=== PATIENT | male | born 1990 | race Caucasian/White ===

== ENCOUNTER 2017-10-24 19:36 | Emergency (ER) | payer MEDICAID ==
[~2017-10-24] VITALS: Ht 177.8 cm; Wt 93.9 kg
[~2017-10-24 19:36] MED LIST: INSLAN SQ
[2017-10-24 20:19] LABS: BASOPHILS % (AUTO) 0.7 % (0.0-2.0); EOSINOPHILS % (AUTO) 2.9 % (1.0-6.0); HEMATOCRIT 40.9 % (41-53); HEMOGLOBIN 14.4 g/dL (13.5-17.5); LYMPHOCYTES # (AUTO) 2.8 K/uL (1.0-4.8); LYMPHOCYTES % (AUTO) 34.1 % (22.0-44.0); MEAN CORPUSCULAR HEMOGLOBIN 28.2 pg (26.0-34.0); MEAN CORPUSCULAR HGB CONC 35.1 G/dL (31.0-37.0); MEAN CORPUSCULAR VOLUME 80 fL (80-100); MONOCYTES % (AUTO) 11.8 % (2.0-9.0); NEUTROPHILS # (AUTO) 4.1 K/uL (1.8-7.7); NEUTROPHILS % (AUTO) 50.5 % (40.0-70.0); PLATELET COUNT (AUTO) 396 K/uL (150-450); RED CELL DISTRIBUTION WIDTH 13.6 % (11.5-14.5)
[2017-10-24 20:30] LABS: ANION GAP 10 mmol/L (8-16); CALCIUM, TOTAL 9.3 mg/dL (8.8-10.5); CARBON DIOXIDE 29 mmol/L (22-29); CHLORIDE 101 mmol/L (98-107); CREATININE 1.19 mg/dL (0.60-1.30); GLOMERULAR FILTR. RATE CALC > 60 mL/min (>60); GLUCOSE,RANDOM 143 mg/dL (70-110); POTASSIUM 3.6 mmol/L (3.5-5.1); SODIUM SERUM 140 mmol/L (136-145); UREA NITROGEN, BLOOD 8 mg/dL (7-18)
[2017-10-24 20:35] LABS: ALANINE AMINOTRANSFERASE 144 U/L (12-78); ALBUMIN 3.6 g/dL (3.4-5.0); ALKALINE PHOSPHATASE 140 U/L (46-116); ASPARTATE AMINOTRANSFERASE 44 U/L (15-37); BILIRUBIN,TOTAL 0.5 mg/dL (0.1-1.0); LIPASE 1109 U/L (73-393); TOTAL PROTEIN, SERUM 7.5 g/dL (6.4-8.2)
[2017-10-24 20:59] LABS: APPEARANCE,URINE CLOUDY (CLEAR); GLUCOSE, URINE (UA) 100 mg/dL (NEGATIVE); KETONES,URINE 15 mg/dL (NEGATIVE); LEUKOCYTE ESTERASE ,URINE SMALL (NEGATIVE); NITRATE,URINE NEGATIVE (NEGATIVE); OCCULT BLOOD,URINE NEGATIVE (NEGATIVE); PH,URINE 6.5 (5.0-8.0); PROTEIN,URINE SEE CONFIRM (NEGATIVE)
[2017-10-24 21:12] LABS: BILIRUBIN,URINE PRELIM. POSITIVE (NEGATIVE)
[2017-10-24 21:46] LABS: SULFOSALICYLIC ACID,URINE 1+ (Negative)
[2017-10-24 21:48] LABS: BACTERIA,URINE Moderate /HPF (None Seen); RBC,URINE None Seen /HPF (0-2); SQUAMOUS EPITHELIAL CELL,UR Few /LPF (None Seen)
[2017-10-24 21:49] LABS: MUCUS,URINE Many LPF (None Seen)
[2017-10-24] MEDS: SODIUM CHLORIDE 0.9% 2,000 ML IV ONE (22:31)
[2017-10-24] MEDS: ONDANSETRON HCL 4 MG/2 ML VIAL IVP ONE (22:32)
[2017-10-24] MEDS: FentaNYL CITRATE-PF 100 MCG/2 ML VIAL IVP ONE (22:32)
[2017-10-25] MEDS: FLUCONAZOLE 150 MG TABLET PO ONE (00:38)
[2017-10-25] MEDS: ACETAMINOPHEN/CODEINE 300-30 MG TABLET PO ONE (00:38)
[2017-10-25 00:51] VITALS: BP 136/70
[2017-10-25] MEDS: FentaNYL CITRATE-PF 100 MCG/2 ML VIAL IVP ONE (00:52)
[2017-10-28 17:14] LABS: GLUCOSE,POINT OF CARE 138 MG/DL (70-110)
== END 2017-10-25 00:55 | disposition home or self-care (01) ==
LOC: EMS 21:17
DX: K85.90 Acute pancreatitis without necrosis or infection, unspecified (principal); B35.3 Tinea pedis; E86.0 Dehydration; K76.0 Fatty (change of) liver, not elsewhere classified; E11.9 Type 2 diabetes mellitus without complications; I10 Essential (primary) hypertension; Z90.49 Acquired absence of other specified parts of digestive tract; Z79.4 Long term (current) use of insulin; Z79.899 Other long term (current) drug therapy
CPT/HCPCS: 36415; 80053; 81001; 82948; 82962; 83690; 85025; 87086; 93005; 96361; 96374; 96375; 96376; 99285; J2405; J3010 ×2; J7030

== ENCOUNTER 2018-09-08 10:07 | Emergency (ER) | payer SELFPAY ==
[~2018-09-08] VITALS: Ht 177.8 cm; Wt 104.5 kg
[2018-09-08 10:19] LABS: GLUCOSE,POINT OF CARE 297 MG/DL (70-110)
[2018-09-08] MEDS ORDERED: PROPARACAINE HCL 0.5% 15 ML OPHTHALMIC SOLUTION OD ONE (12:15)
[2018-09-08] MEDS ORDERED: FLUORESCEIN SODIUM 1 MG STRIP OD ONE (12:15)
[2018-09-08 13:27] VITALS: BP 151/91
== END 2018-09-08 13:52 | disposition home or self-care (01) ==
LOC: EMS 10:08
DX: R51 Headache (principal); R22.0 Localized swelling, mass and lump, head; H57.11 Ocular pain, right eye; I10 Essential (primary) hypertension; E11.9 Type 2 diabetes mellitus without complications
CPT/HCPCS: 70450

== ENCOUNTER 2024-06-21 20:52 | Inpatient (IN) | payer MEDICAID, OTHER ==
[~2024-06-21] VITALS: Ht 177.8 cm; Wt 98.4 kg
[~2024-06-21 20:52] MED LIST changes: +AMOX250T PO; +TRAM50TA5 PO
[2024-06-21 21:46] LABS: BASOPHILS % (AUTO) 0.2 % (0.0-2.0); EOSINOPHILS % (AUTO) 0.4 % (1.0-6.0); HEMATOCRIT 52.5 % (41-53); HEMOGLOBIN 17.9 g/dL (13.5-17.5); LYMPHOCYTES # (AUTO) 1.9 K/uL (1.0-4.8); LYMPHOCYTES % (AUTO) 10.5 % (22.0-44.0); MEAN CORPUSCULAR HEMOGLOBIN 28.4 pg (26.0-34.0); MEAN CORPUSCULAR HGB CONC 34.1 G/dL (31.0-37.0); MEAN CORPUSCULAR VOLUME 83 fL (80-100); MONOCYTES # (AUTO) 1.2 K/uL (0.1-1.0); MONOCYTES % (AUTO) 6.5 % (2.0-9.0); NEUTROPHILS # (AUTO) 14.7 K/uL (1.8-7.7); NEUTROPHILS % (AUTO) 82.4 % (40.0-70.0); PLATELET COUNT (AUTO) 341 K/uL (150-450); RED BLOOD CELL COUNT(AUTO) 6.31 MIL/uL (4.50-5.90); RED CELL DISTRIBUTION WIDTH 13.1 % (11.5-14.5); WHITE BLOOD COUNT (AUTO) 17.8 K/uL (4.5-11.0)
[2024-06-21 21:57] LABS: ANION GAP 13 mmol/L (8-16); CALCIUM, TOTAL 9.9 mg/dL (8.8-10.5); CARBON DIOXIDE 22 mmol/L (22-29); CHLORIDE 99 mmol/L (98-107); CREATININE 0.79 mg/dL (0.60-1.30); GLOMERULAR FILTR. RATE CALC > 60 mL/min (>60); GLUCOSE,RANDOM 343 mg/dL (70-110); SODIUM SERUM 134 mmol/L (136-145); UREA NITROGEN, BLOOD 17 mg/dL (7-18)
[2024-06-21 21:58] LABS: LIPASE 69 U/L (16-77)
[2024-06-21 22:01] LABS: ALBUMIN 3.9 g/dL (3.4-5.0); BILIRUBIN,DIRECT 0.5 mg/dL (0.00-0.20); BILIRUBIN,TOTAL 1.3 mg/dL (0.1-1.0); TOTAL PROTEIN, SERUM 8.2 g/dL (6.4-8.2)
[2024-06-21 22:03] LABS: APPEARANCE,URINE HAZY (CLEAR); COLOR,URINE YELLOW (YELLOW); GLUCOSE, URINE (UA) >=1000 mg/dL (NEGATIVE); KETONES,URINE 40-60 mg/dL (NEGATIVE); LEUKOCYTE ESTERASE ,URINE TRACE (NEGATIVE); NITRATE,URINE NEGATIVE (NEGATIVE); OCCULT BLOOD,URINE NEGATIVE (NEGATIVE); PH,URINE 5.5 (5.0-8.0); PROTEIN,URINE 300-600,SEE CONFIRM mg/dL (NEGATIVE); SPECIFIC GRAVITIY, URINE 1.041 (1.003-1.030)
[2024-06-21 22:04] LABS: BILIRUBIN,URINE SMALL (NEGATIVE)
[2024-06-21 22:14] LABS: COVID AG,FIA SOURCE NASAL SWAB
[2024-06-21 22:35] LABS: SARS-COV2 (COVID) ANTIGEN,FIA Negative (Negative)
[2024-06-21 22:36] LABS: INFLUENZA TYPE A NEGATIVE FOR TYPE A (NEGATIVE); INFLUENZA TYPE B NEGATIVE FOR TYPE B (NEGATIVE)
[2024-06-21 22:41] LABS: RBC,URINE 0-2 /HPF (0-2)
[2024-06-21 22:42] LABS: BACTERIA,URINE Few /HPF (None Seen); SQUAMOUS EPITHELIAL CELL,UR Few /LPF (None Seen); SULFOSALICYLIC ACID,URINE 1+ (Negative)
[2024-06-21] MEDS: IOHEXOL 9 MG/ML 500 ML BOTTLE PO ONE (23:24)
[2024-06-21] MEDS: HYDROmorphone HCL 2 MG/ML SYRINGE IVP ONE (23:25)
[2024-06-21] MEDS: ONDANSETRON HCL 4 MG/2 ML VIAL IVP ONE (23:25)
[2024-06-21] MEDS: INSULIN REGULAR, HUMAN 100 UNITS/ML IVP ONE (23:29)
[2024-06-21] MEDS: SODIUM CHLORIDE 0.9% 2,000 ML IV ONE (23:35)
[2024-06-22] MEDS: SODIUM CHLORIDE 0.9% 1,000 ML IV ONE (03:32)
[2024-06-22] MEDS: HYDROmorphone HCL 2 MG/ML SYRINGE IVP ONE ×2 (03:33→08:56)
[2024-06-22 04:16] LABS: GLUCOMETER DEV NAME(LOC) ER.7; GLUCOSE,POINT OF CARE 230 MG/DL (70-110)
[2024-06-22 09:43] VITALS: BP 130/91; PULSE 89; RESP 18; TEMP 98.1; O2SAT 98
[2024-06-22 12:21] LABS: GLUCOMETER DEV NAME(LOC) 6N.2B; GLUCOSE,POINT OF CARE 193 MG/DL (70-110)
[2024-06-22 15:58] VITALS: BP 127/79; PULSE 75; RESP 18; TEMP 98.4; O2SAT 99
[2024-06-22] MEDS: DEXTROSE 5%-0.45% SODIUM CHL 1,000 ML IV SCH (16:01)
[2024-06-22] MEDS: MORPHINE SULFATE 2 MG/ML SYRINGE IVP PRN (16:21)
[2024-06-22 19:21] VITALS: BP 135/92; PULSE 82; RESP 18; TEMP 97.9; O2SAT 97
[2024-06-22] MEDS ORDERED: MAGNESIUM HYDROXIDE SUSPENSION 30 ML UDCUP PO PRN (21:15)
[2024-06-22] MEDS ORDERED: OxyCODONE HCL/ACETAMINOPHEN 5-325 MG TABLET PO PRN (21:15)
[2024-06-22] MEDS ORDERED: ZOLPIDEM TARTRATE 5 MG TABLET PO PRN (21:15)
[2024-06-22] MEDS ORDERED: ACETAMINOPHEN 325 MG TABLET PO PRN (21:15)
[2024-06-22] MEDS ORDERED: IPRATROPIUM BROMIDE 0.5 MG/2.5 ML NEB SOLUTION NEB PRN (21:15)
[2024-06-22] MEDS ORDERED: ONDANSETRON HCL 4 MG/2 ML VIAL IVP PRN (21:15)
[2024-06-22] MEDS ORDERED: BISACODYL 10 MG RECTAL RECTAL SUPPOSITORY PR PRN (21:15)
[2024-06-22] MEDS ORDERED: ALBUTEROL SULFATE 2.5 MG/0.5 ML NEB SOLUTION NEB PRN (21:15)
[2024-06-22] MEDS ORDERED: MORPHINE SULFATE 2 MG/ML SYRINGE IVP PRN (21:15)
[2024-06-22] MEDS: HEPARIN SODIUM,PORCINE 5,000 UNITS/ML VIAL SQ SCH (23:41)
[2024-06-23 04:12] VITALS: BP 105/64; PULSE 60; RESP 19; TEMP 97.7; O2SAT 97
[2024-06-23] MEDS: PANTOPRAZOLE SODIUM 40 MG/VIAL IVP SCH (08:30)
[2024-06-23 08:42] VITALS: BP 126/80; PULSE 63; RESP 18; O2SAT 97
[2024-06-23] MEDS: MORPHINE SULFATE 2 MG/ML SYRINGE IVP PRN (08:43)
[2024-06-23 08:46] VITALS: BP 118/82; PULSE 68; RESP 18; TEMP 97.5; O2SAT 97
[2024-06-23] MEDS ORDERED: DEXTROSE 50%-WATER 25 GM/50 ML SYRINGE IVP PRN ×2 (11:15)
[2024-06-23] MEDS ORDERED: INSULIN LISPRO 100 UNITS/ML SQ PRN (11:15)
[2024-06-23] MEDS: INSULIN LISPRO 100 UNITS/ML SQ PRN (11:17)
[2024-06-23 12:11] LABS: GLUCOMETER DEV NAME(LOC) 6S.2; GLUCOSE,POINT OF CARE 223 MG/DL (70-110)
[2024-06-23] MEDS ORDERED: METF-1211 PO (14:38)
[2024-06-23] MEDS ORDERED: DOCU-385 PO (14:39)
[2024-06-23 16:00] VITALS: BP 120/77; PULSE 74; RESP 20; TEMP 98.2; O2SAT 100
[2024-06-23 18:31] LABS: GLUCOMETER DEV NAME(LOC) 6N.2B; GLUCOSE,POINT OF CARE 255 MG/DL (70-110)
== END 2024-06-23 18:00 | disposition home or self-care (01) | DRG 247 ==
LOC: EMS 20:52 → EDH 06-22 03:25 → 6S 06-22 09:37
PROVIDERS: ADMIT Hospitalist; ATTEND Hospitalist
PROC: 5A1935Z Respiratory Ventilation, Less than 24 Consecutive Hours (ICD-10-PCS; principal; 2024-06-22)
DX: K56.609 Unspecified intestinal obstruction, unspecified as to partial versus complete obstruction (principal); R65.10 Systemic inflammatory response syndrome (SIRS) of non-infectious origin without acute organ dysfunction; E11.65 Type 2 diabetes mellitus with hyperglycemia; Z20.822 Contact with and (suspected) exposure to COVID-19; E66.9 Obesity, unspecified; Z86.73 Personal history of transient ischemic attack (TIA), and cerebral infarction without residual deficits; Z87.891 Personal history of nicotine dependence; Z68.31 Body mass index [BMI] 31.0-31.9, adult
CPT/HCPCS: 71045; 74018; 74177; 80048; 80076; 81001; 81002; 82962; 83690; 85025; 87804; 93005; 96361; 96374; 96375; 99285; G0378; J1171; J1644; J1815; J2270; J2405; J2470; J7030; 36415-L1; 36415-TC